=== PATIENT | male | born 2005 | race Two or more races ===

== ENCOUNTER 2023-09-01 01:49 | Emergency (ER) | payer MEDICAID, SELFPAY ==
--- NOTE | 2023-09-01 01:51 | ED.GENADULT ---
HPI - General Adult General Time Seen by Provider: 01:51 Date Seen: 09/01/23 Chief complaint: Skin/Abscess/Foreign Body Stated complaint: Allergic reaction--acid reflux, rash across body Time Seen by Provider: 09/01/23 01:53 Source: patient, RN notes reviewed and old records reviewed Mode of arrival: ambulatory Limitations: no limitations History of Present Illness HPI narrative: 18-year-old male who presents today with reflux, rash starting this evening. Patient reports he started having a rash and some heartburn symptoms yesterday, was seen in outside emergency department and was given medications, prescribed prednisone and Pepcid which he did not start taking in the rash returned tonight. He took Benadryl at home prior to coming the emergency department. He denies any breathing difficulty or cough, no tongue or lip swelling. Predominantly complains of a rash as well as nausea and some heartburn. Related Data Previous Rx's ?Medication ?Instructions ?Recorded cetirizine 10 mg capsule (Zyrtec) 10 mg PO BID 7 days #14 caps 09/01/23 Allergies Allergy/AdvReac Type Severity Reaction Status Date / Time No Known Drug Allergies Allergy Verified 09/01/23 01:59 [facility] Medical History (Updated 09/01/23 @ 03:15 by Keith Cornejo MD) No significant past medical history Surgical History (Updated 09/01/23 @ 02:29 by Emer Beltran RN) No significant past surgical history Social History Smoking Status: Never smoker Second hand tobacco smoke exposure: No How often do you have a drink containing alcohol: never AUDIT-C Alcohol total score: 0 Non-prescribed substance use: denies use Exam Narrative: Exam Narrative: General: Well-developed and well-nourished, no acute distress Head: Atraumatic and normocephalic Eyes: Pupils are equal reactive, extraocular motions intact, conjunctiva clear ENT: External nose and ears are normal, posterior pharynx without erythema or exudate Neck: No midline cervical tenderness, full spontaneous range of motion the neck, trachea midline, no adenopathy Heart: Regular rate and rhythm no murmurs or thrills Lungs: Clear to auscultation bilaterally without wheezes or crackles Abdomen: Soft, nontender, nondistended with active bowel sounds Musculoskeletal: No tenderness, deformity, or edema Neurologic: Awake, alert, and oriented x3, no gross focal neurologic deficits, cranial nerves intact as tested Psych: Mood and affect are appropriate Skin: Diffuse urticarial rash Const: Vital Signs, click to edit/add: Vital Signs - 24 hr 09/01/23 01:57 09/01/23 02:30 Temperature 97.9 F Pulse Rate [Right Pulse Oximeter] 89 Respiratory Rate 20 Blood Pressure [Ri ght Upper Arm] 133/84 Pulse Oximetry 99 99 Oxygen Delivery Me thod Room Air Course Course ED Course: Patient seen examined, prior records reviewed. Patient presents today with rash as well as nausea and heartburn. Symptoms are most consistent with allergic reaction, patient will be given epinephrine, Benadryl, Zantac IV, and prednisone in the emergency department and observed. Anticipate discharge Reevaluation(s) Time of Reevaluation #1: 03:14 Reevaluation #1: Patient recheck, he is sleeping comfortably, rash on the arms and neck is improved, still some on the low abdomen. Will continue to monitor and plan for discharge. Vital Signs Vital signs: Initial Vital Signs Temperature 97.9 F 09/01/23 01:57 Temperature Source Temporal Artery Scan 09/01/23 01:57 Pulse Rate 89 09/01/23 01:57 Respiratory Rate 20 09/01/23 01:57 Blood Pressure 133/84 09/01/23 01:57 Blood Pressure Mean 100 09/01/23 01:57 Blood Pressure Position Sitting 09/01/23 01:57 Pulse Oximetry 99 09/01/23 01:57 Oxygen Delivery Method Room Air 09/01/23 01:57 Vital Signs Temperature 97.9 F 09/01/23 01:57 Pulse Rate 89 09/01/23 01:57 Respiratory Rate 20 09/01/23 01:57 Blood Pressure 133/84 09/01/23 01:57 Pulse Oximetry 99 09/01/23 01:57 Oxygen Delivery Method Room Air 09/01/23 01:57 Temperature 97.9 F 09/01/23 01:57 Pulse Rate 89 09/01/23 01:57 Respiratory Rate 20 09/01/23 01:57 Blood Pressure 133/84 09/01/23 01:57 Pulse Oximetry 99 09/01/23 02:30 Oxygen Delivery Method Room Air 09/01/23 01:57 Medications Administered Medications: Generic Name Dose Route Start Last Admin Trade Name Freq PRN Reason Stop Dose Admin Prednisone 40 mg 09/01/23 08:00 09/01/23 02:10 Prednisone 20 Mg Tablet PO 40 mg DAILYWM ALEX Administration Discontinued Medications Generic Name Dose Route Start Last Admin Trade Name Bryn NUNEZ Reason Stop Dose Admin Diphenhydramine HCl 50 mg 09/01/23 01:59 09/01/23 02:14 Diphenhydramine 50 Mg/Ml Inj IVP 09/01/23 02:00 50 mg ONCE ONE Administration Epinephrine HCl 0.3 mg 09/01/23 01:59 09/01/23 02:10 Epinephrine 0.3 Mg Pen IM 09/01/23 02:00 0.3 mg ONCE ONE Administration Famotidine 20 mg 09/01/23 01:59 09/01/23 02:12 Famotidine 10 Mg/Ml Inj IVP 09/01/23 02:00 20 mg ONCE ONE Administration Ondansetron HCl 4 mg 09/01/23 01:59 09/01/23 02:10 Ondansetron 2 Mg/Ml Inj IVP 09/01/23 02:00 4 mg ONCE ONE Administration Discharge Plan Discharge Clinical Impression: Allergic reaction Patient Disposition: Home, Self-Care Condition: Stable Instructions: General Allergic Reaction (ED) Additional Instructions: Start prednisone and Pepcid as prescribed at your visit yesterday Take Benadryl 50 mg every 6 hours scheduled for 24 hours, then every 6 hours as needed Start Zyrtec twice a day for 1 week and then as needed Activity Level: No Restrictions Discharge Diet: Regular Prescriptions: New Zyrtec 10 mg capsule 10 mg PO BID 7 Days Qty: 14 0RF Follow Up/Referrals: Nick Crouch, CHRIS, ATC, CSCS [Clinical Science Consultant Certified] - Stand Alone Forms: [employer] Info Instructions
[2023-09-01 01:57] VITALS: BP 133/84; PULSE 89; RESP 20; TEMP 36.6; O2SAT 99; BMI 46.8
[2023-09-01] MEDS: ONDANSETRON 2 MG/ML inj 4 MG IVP (02:10)
[2023-09-01] MEDS: predniSONE 20 MG TABLET 40 MG PO (02:10)
[2023-09-01] MEDS: EPINEPHrine 0.3 MG PEN IM (02:10)
[2023-09-01] MEDS: FAMOTIDINE 10 MG/ML inj 20 MG IVP (02:12)
[2023-09-01] MEDS: diphenhydrAMINE 50 MG/ML inj IVP (02:14)
[2023-09-01 02:30] VITALS: O2SAT 99
[2023-09-01 03:56] VITALS: BP 137/74; PULSE 79; RESP 20; TEMP 36.6; O2SAT 99
[2023-09-01 03:57] VITALS: BP 137/74; PULSE 79; RESP 20; TEMP 36.6
== END 2023-09-01 03:57 | disposition home or self-care (01) ==
PROVIDERS: Emergency Provider Family Medicine
DX: R21 Rash and other nonspecific skin eruption (principal); T78.40XA Allergy, unspecified, initial encounter
CPT/HCPCS: 94761; 96372; 96374; 96375; 99283; J0171; J1200; J2405; J7512; S0028

== ENCOUNTER 2024-03-18 18:22 | Emergency (ER) | payer MEDICAID, SELFPAY ==
--- OUTSIDE RECORDS SUMMARY | 2024-03-18 18:25 | XMS_ITS | Clinical Summary ---
Author Organization [employer] [facility] s [facility] Address [place], [place] [address] Care Team Providers Care Sales Representative Education Courses Name Role Phone Lina Aguilera RD Unavailable [phone] Julia Pham DPT Unavailable [phone] Unavailable Hugo Emery MD Primary Care Provider [phone] Corinne Romero Unavailable [phone] Allergies No known active allergies Medications polyethylene glycol (MIRALAX; GLYCOLAX) 17 g powder for solutionIndicati ons:Childhood obesity, unspecified BMI, unspecified obesity type, unspecified whether serious comorbidity present Mix 17 g in liquid then take by mouth once daily. 0 11/12/19 21 Active aspirin (ECOTRIN) 81 mg enteric coated tabletIndication s:Frostbite, initial encounter Take 1 Tablet (81 mg) by mouth once daily with a meal. 14 Tablet 04/18/19 23 Active cholecalciferol (VITAMIN D3) 2,000 unit capsuleIndicatio ns:Abnormal craving,Obesity with body mass index (BMI) greater than 99th percentile for age in pediatric patient, unspecified obesity type, unspecified whether serious comorbidity present TAKE ONE CAPSULE BY MOUTH EVERY DAY 90 Capsule 3 10/08/19 23 Active topiramate (TOPAMAX) 25 mg tabletIndication s:Abnormal craving Take 2 Tablets (50 mg) by mouth once daily. 60 Tablet 2 12/01/19 23 Active phentermine (IONAMIN) 15 mg capsuleIndicatio ns:Abnormal craving Take 1 Capsule (15 mg) by mouth once daily before a meal. 30 Capsule 2 12/01/19 23 Active hydrOXYzine HCL (ATARAX) 25 mg tabletIndication s:Allergic urticaria Take 1-2 Tablets (25-50 mg) by mouth every 6 hours if needed for Itching. 30 Tablet 09/03/19 24 Active EPINEPHrine (EPIPEN) 0.3 mg/0.3 mL auto-injectorInd ications:Allergi c urticaria Inject 0.3 mg (1 Pen) intramuscular each time if needed for Allergic Reaction. 2 Each 3 09/03/19 24 Active sennosides-docus ate (SENOKOT S) (8.6-50 mg) tabletIndication s:Chronic constipation Take 1 Tablet by mouth once daily if needed for Constipation. 30 Tablet 5 09/03/19 24 Active Active Problems Patient Care Coordination No te Formatting of this note migh t be different from the original. Nutrition Order 03/21/2021 Problem Noted Date Diagnosed Date Controlled substance agreement signed 11/30/2022 Overview (11/30/2022): For phentermine. 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 Encounters Date Type Department Care Team Description 03/17/2024 7:09 PM SLOT OPERATIONS DIRECTOR - 03/17/2024 7:13 PM SLOT OPERATIONS DIRECTOR Emergency [facility] [address] [place] [address] Discharge Disposition: Against Medical Advice or Discontinued Care 03/17/2024 Travel from Last 3 Months Immunizations Name Administration Dates Next Due DTaP 11/03/2004 [id number] (Pediarix) 01/07/2004,2003,0 2003 DTaP-IPV (Kinrix) 11/23/2008 HIB PRP-OMP (PedvaxHIB) 11/03/2004,2003, HPV 9 (Gardasil 9) 05/02/2019,11/12/2015 Hepatitis A (Peds) 11/22/2008,07/04/2007 Hepatitis B (Peds) 2003 Influenza, IIV3 (Age >=3 years) 01/06/2008 Influenza, IIV4 03/22/2020, 0,11/12/2015,04/10 MENINGOCOCCAL VACCINE 2 VIAL 2MO-55YO (MENVEO) 11/13/2019,11/12/2015 MMR 07/04/2007,07/10/2004 Pneumococcal conj 7-Valent (Prevnar 7) 5,2003,2003 Tdap 04/18/2022,11/12/2015 Varicella Vaccine 07/04/2007,07/10/2004 Family History Medical History Relation Name Comments Hyperlipidemia Maternal Grandmother Hypertension Maternal Grandmother Obesity Mother Relation Name Status Comments Brother Alive x1 Father Alive Maternal Grandfather Alive Maternal Grandmother Alive Mother Alive Paternal Grandfather Alive Paternal Grandmother Alive Social History Tobacco Use Types Packs/Day Years Used Date Smoking Tobacco: Never Smokeless Tobacco: Never Tobacco Cessation:Counseling Given: No Alcohol Use Standard Drinks/Week Comments No 0 (1 standard drink = 0.6 oz pur e alcohol) [facility] Utilities Answer Date Recorded Do you have trouble paying f or utilities (for example, heat, electricity, water, phone)? Yes 09/03/2023 PHQ-2 Answer Date Recorded PHQ-2 TOTAL SCORE 2 11/11/2020 Social Connections Answer Date Recorded Do you often feel lonely or isolated from those around you? 0 09/03/2023 Financial Resource Strain Answer Date R ecorded Difficulty of Paying Living Expenses 3 09/03/2023 Difficulty of Paying Living Expenses Not on file 09/03/2023 Food Insecurity Answer Date Recorded Do you worry your food will run out before you are able to buy more? 1 09/03/2023 Transportation Needs Answer Date Record ed Does lack of transportation keep you from medica l appointments? 1 09/03/2023 Does lack of transportation keep you from work, meetings or getting things that you need? 1 09/03/2023 Housing Stability Answer Date Recorded What is your housing situation today? 1 09/03/2023 Interpersonal Safety Answer Date Record ed Are you being hit, kicked, p ushed or yelled at (see row info)? 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 Not on file Not on file Not on fi le Obstetrics History Last Filed Vital Signs Vital Sign Reading Time Taken Comments Blood Pressure 122/72 09/03/2023 4:00 PM CDT Pulse 80 09/03/2023 4:00 PM CDT Temperature 36.6 C (97.9 F) 09/03/2023 5:31 AM CDT Respiratory Rate 17 09/03/2023 4:00 PM CDT Oxygen Saturation 98% 09/03/2023 7:00 AM CDT Inhaled Oxygen Concentration - - Weight 178.3 kg (393 lb) 09/03/2023 4:00 PM CDT Height 172.7 cm (5' 8) 09/03/2023 4:00 PM CDT Body Mass Index 59.76 09/03/2023 4:00 PM CDT Plan of Treatment Health Maintenance Due Date Last Done Comments HIV for age 15-65 06/24/2018 Well Child Check for age 3-20 05/02/2020 05/02/2019, 11/12/2015, 11/22/2008, Additional history exists Hepatitis C screening for age 18-79 06/24/2021 Depression screening for age 12+ 11/14/2021 11/14/2020, 11/14/2020, 11/13/2020, Additional history exists COVID-19 vaccine series (2023- season) 2023 Influenza for age 9-49 11/14/2023 , 05/02/2019, 11/12/2015, Additional history exists BMI (ht and wt on same day) for age 18+ 09/02/2024 09/03/2023, 11/30/2022, 10/05/2022, Additional history exists Tetanus booster 04/18/2032 04/18/2022, 11/12/2015 Pneumococcal series for age 6-49 Aged Out 11/03/2004, 2003, 2003 No longer eligible based on patient's age to complete this topic HPV series for age 9-26 Completed 05/02/2019, 11/11 Meningococcal series for age 11-21 Completed 11/13/2019, 11/12/2015 Tdap Completed 04/18/2022, 11/12/2015 Additional Health Concerns Infection Onset Date Last Indicated MRSA Comment:Leg wound 07/20/2013 07/20/2013 Insurance [facility] [place] [address] [facility] [phone] [place] [id number] Care Teams Sales Representative Education Courses Relationship Specialty Start Date End Date Hugo Emery MD [address] [place] [address] [place] [address] PCP - General Family Practice 09/03/[address] [address] Solar Sales 04/24/22 Julia Pham DPT [address] [address] Physical Therapist Physical Therapist 04/24/[address] [address] Solar Sales 03/31/23 Corinne Romero PA [address] [place] [address] Physician Endoscopy Tech 12/08/23
[2024-03-18 18:29] VITALS: BP 144/85; PULSE 95; RESP 20; TEMP 36.4; O2SAT 98; BMI 57.0
--- NOTE | 2024-03-18 18:53 | ED_ITS ---
HPI - General Adult General Chief complaint: Chest Pain Stated complaint: increasing chest pains over 3 weeks Time Seen by Provider: 03/18/24 18:33 History of Present Illness HPI narrative: This 18-year-old male comes in reporting chest discomfort that he thinks may be related to reflux symptoms. He states that it began 3 weeks ago when he had several vomiting episodes. The pain began immediately at that time and has dissipated a bit but has been persistent nevertheless through these past 3 weeks and seems to be worsening recently. He states that the pain seems worse when laying down. He does not report any nausea, vomiting recently, lightheadedness, shortness of breath, diaphoresis, or exercise intolerance. He is taking Wegovi for weight loss but started this a few months ago. He states that he did discontinue this medicine for for 1 week and his symptoms did not change when doing so. Related Data Home Medications ?Medication ?Instructions ?Recorded ?Confirmed semaglutide (weight loss) 0.5 0.5 mg subcut 03/18/24 mg/0.5 mL subcutaneous pen injector (Wegovy) Previous Rx's ?Medication ?Instructions ?Recorded pantoprazole 20 mg tablet,delayed 20 mg PO DAILY #30 tabs 03/18/24 release (Protonix) Allergies Allergy/AdvReac Type Severity Reaction Status Date / Time No Known Drug Allergies Allergy Verified 09/01/23 01:59 Review of Systems Status of ROS: Reports: 10 or more systems reviewed and unremarkable except as noted in History and below Narrative: Constitutional: No fevers, no weight gain or loss. Eyes: No discharge. No vision changes. HENT: No congestion, no sore throat, no ear pain. Cardiovascular: No palpitations. Respiratory: No shortness of breath, no wheezes, no cough. Gastrointestinal: No abdominal pain, no vomiting, no diarrhea. Genitourinary: No dysuria, no hematuria. Musculoskeletal: Normal range of motion. Skin: No rashes, no pruritis. Neurological: No dizziness, weakness, sensory change, speech change. Endo/Heme/Allergies: No bruising or bleeding. No polydipsia. Pysch: no suicidality, no anxiety, no insomnia. All other systems reviewed and are negative. [facility] Medical History (Updated 03/18/24 @ 18:58 by Arnold Calderon MD) No significant past medical history Surgical History (Updated 09/01/23 @ 02:29 by Emre Beltran RN) No significant past surgical history Social History Smoking Status: Never smoker Second hand tobacco smoke exposure: No How often do you have a drink containing alcohol: never AUDIT-C Alcohol total score: 0 Non-prescribed substance use: denies use Exam Narrative: Exam Narrative: Constitutional: Well-developed, well-nourished, no acute distress. HEENT: Normocephalic, atraumatic. Neck: Normal range of motion. Nontender. Supple. Heart: Regular. No murmurs. Normal rate. Intact distal pulses. Lungs: Clear to auscultation. No wheezes, rhonchi, or rales. Abdomen: Normal bowel sounds. Nontender. No rebound tenderness. Genitalia: Deferred. Back: No midline tenderness. Normal range of motion. Extremities: Normal range of motion. No injury. Skin: Intact. No rash. Warm. No erythema or pallor. Neurologic: No altered sensation. No weakness. Alert and oriented. Psychiatric: No suicidality. No anxiety or depression. No insomnia. Nursing notes and vitals signs are reviewed. Const: Vital Signs, click to edit/add: Vital Signs - 24 hr 03/18/24 18:29 Temperature 97.5 F L Pulse Rate [Pulse Oximeter] 95 Respiratory Rate 20 Blood Pressure [Ri ght Upper Arm] 144/85 H Pulse Oximetry 98 Oxygen Delivery Me thod Room Air Course Vital Signs Vital signs: Initial Vital Signs Temperature 97.5 F L 03/18/24 18:29 Temperature Source Temporal Artery Scan 03/18/24 18:29 Pulse Rate 95 03/18/24 18:29 Respiratory Rate 20 03/18/24 18:29 Blood Pressure 144/85 H 03/18/24 18:29 Blood Pressure Mean 104 03/18/24 18:29 Blood Pressure Position Sitting 03/18/24 18:29 Pulse Oximetry 98 03/18/24 18:29 Oxygen Delivery Method Room Air 03/18/24 18:29 Vital Signs Temperature 97.5 F L 03/18/24 18:29 Pulse Rate 95 03/18/24 18:29 Respiratory Rate 20 03/18/24 18:29 Blood Pressure 144/85 H 03/18/24 18:29 Pulse Oximetry 98 03/18/24 18:29 Oxygen Delivery Method Room Air 03/18/24 18:29 Temperature 97.5 F L 03/18/24 18:29 Pulse Rate 95 03/18/24 18:29 Respiratory Rate 20 03/18/24 18:29 Blood Pressure 144/85 H 03/18/24 18:29 Pulse Oximetry 98 03/18/24 18:29 Oxygen Delivery Method Room Air 03/18/24 18:29 Medical Decision Making MDM Narrative Medical decision making narrative: This patient has chest discomfort likely related to reflux symptoms. He states that he feels a bad taste in his mouth frequently even after brushing his teeth. An EKG is obtained here and appears normal without any ST or T-wave abnormalit ies. The patient is not showing any signs or symptoms of heart or lung or great vessel disease. I recommended using a proton pump inhibitor and did provide a prescription for Protonix. He may use snog-tyu-lzoomsy medicines that are similar instead if desired. ECG Data Attestation: I personally reviewed and interpreted this ECG as follows: Interpretation: Normal sinus rhythm. Rate is 96 beats per minute. There are no ST or T-wave abnormalities. Discharge Plan Discharge Clinical Impression: Chest pain due to GERD Patient Disposition: Home, Self-Care Condition: Unchanged Additional Instructions: Take Protonix as prescribed. You may substitute Prilosec (omeprazole), Prevacid, or Nexium for the same results. Follow up with MD return if worsening. Prescriptions: New pantoprazole [Protonix] 20 mg tablet,delayed release (DR/EC) 20 mg PO DAILY Qty: 30 2RF No Action Wegovy 0.5 mg/0.5 mL pen injector 0.5 mg subcut Follow Up/Referrals: Provider,Not a Local [Primary Care Provider] - Stand Alone Forms: [employer] Info Instructions
--- OUTSIDE RECORDS SUMMARY | 2024-03-18 19:01 | XMS_ITS | Clinical Summary ---
Author Organization [employer] [facility] s & [facility] Affiliates Address [place], [place] [address] Care Team Providers Care Talent Acquisition Program Manager Name Role Phone Lina Aguilera RD Unavailable [phone] Julia Pham DPT Unavailable [phone] Unavailable Hugo Emery MD Primary Care Provider [phone] Corinne Romero Unavailable [phone] Allergies No known active allergies Medications polyethylene [...] Department Care Team Description 03/17/2024 7:09 PM [facility]ER [facility] - 03/17/2024 7:13 PM [facility] Emergency [facility] [address] [place] [address] Discharge Disposition: Against Medical Advice or Discontinued Care 03/17/2024 Travel from Last 3 Months Immunizations Name Administration Dates Next Due DTaP 11/03/2004 [id number] (Pediarix) 01/07/2004,2003,0 2003 DTaP-IPV (Kinrix) 11/23/2008 HIB [...] drink = 0.6 oz pur e alcohol) [facility] Utilities Answer Date Recorded Do you have [...] on file Legal Sex Male 7:03 AM EASTER BUNNY Gender Identity Not on file Sexual Orientation [...] Indicated MRSA Comment:Leg wound 07/20/2013 07/20/2013 Insurance [facility] MEDICA[facility] [place] [address] [facility] [address] [place] [address] Care Teams Talent Acquisition Program Manager Relationship Specialty Start Date End Date Hugo Emery MD [address] [place] [address] [place] [address] PCP - General Family Practice 09/03/[address] [address] Travel Money Advisor 04/24/22 Julia Pham DPT [address] [address] Physical Therapist Physical Therapist 04/24/[address] [address] Travel Money Advisor 03/31/23 Corinne Romero PA [address] [place] [address] Physician Fireworks Assembly Supervisor 12/08/23
== END 2024-03-18 19:15 | disposition home or self-care (01) ==
LOC: ED 19:00
PROVIDERS: Emergency Provider Emergency Medicine Emergency Medical Services
DX: R07.9 Chest pain, unspecified (principal); K21.9 Gastro-esophageal reflux disease without esophagitis
CPT/HCPCS: 99284

== ENCOUNTER 2024-07-25 20:18 | Emergency (ER) | payer MEDICAID, SELFPAY ==
--- OUTSIDE RECORDS SUMMARY | 2024-07-25 20:19 | XMS_ITS | Clinical Summary ---
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 Gender Identity Not on file Sexual Orientation [...] Done Comments HIV for age 15-65 06/24/2018 Hepatitis C screening for age 18-79 06/24/2021 Depression screening for age 12+ 11/14/2021 11/14/2020, 11/14/2020, 11/13/2020, Additional history exists COVID-19 vaccine series (2023- season) 2023 BMI (ht and wt on same day) for age 18+ 09/02/2024 09/03/2023, 11/30/2022, 10/05/2022, Additional history exists Influenza Vaccine (Season Ended) 2024 03/22/2020, 05/02/2019, 11/12/2015, Additional history exists Tetanus booster 04/18/2032 04/18/2022, 11/12/2015 Pneumococcal series for age 6-49 Aged Out 11/03/2004, 2003, 2003 No longer eligible based on patient's age to complete this topic HPV series for age 9-26 Completed 05/02/2019, 11/11 Meningococcal series for age 11-21 Completed 11/13/2019, 11/12/2015 Tdap Completed 04/18/2022, 11/12/2015 Additional Health Concerns Infection Onset Date Last Indicated MRSA Comment:Leg wound 07/20/2013 07/20/2013 Insurance [facility] MEDICAID [facility] Care Teams Benchroom Shop Optician Relationship Specialty Start Date End Date Hugo Emery MD [address] [facility] [place] [address] PCP - General Family Practice 09/03/[address] [address] Gift Consultant 04/24/22 Julia Mark DPT [address] [address] Physical Therapist Physical Therapist 04/24/[address] [address] Gift Consultant 03/31/23 Corinne Romero PA [address] [facility] [place] [address] Physician Service Assistant 12/08/23
[2024-07-25 20:53] VITALS: BP 141/93; PULSE 93; RESP 20; TEMP 35.6; O2SAT 99; BMI 55.0
[2024-07-25] MEDS: ONDANSETRON 2 MG/ML inj 4 MG IVP (21:45)
--- OUTSIDE RECORDS SUMMARY | 2024-07-25 22:03 | XMS_ITS | Clinical Summary ---
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 Gender Identity Not on file Sexual Orientation [...] Indicated MRSA Comment:Leg wound 07/20/2013 07/20/2013 Insurance [facility] MEDICAID [facility] Care Teams Cashier Associate Relationship Specialty Start Date End Date Hugo Emery MD [address] [facility] [place] [address] PCP - General Family Practice 09/03/[address] [address] Hot Knife Foxing Cutter 04/24/22 Julia Mark DPT [address] [address] Physical Therapist Physical Therapist 04/24/[address] [address] Hot Knife Foxing Cutter 03/31/23 Corinne Romero PA [address] [place] [address] Physician Woods Laborer 12/08/23
[2024-07-25 22:08] LABS: Basophils Percent Auto 0.2 % (0.0-3.0); Eosinophils Percent Auto 0.2 % (0.0-7.0); Hemoglobin* 14.3 gm/dL (13.5-17.5); Immature Granulocytes Pct Auto 0.9 %; Lymphocytes Percent Auto 10.4 % (20-44); Mean Corpuscular HGB Conc 33 gm/dL (32-36); Mean Corpuscular Hemoglobin 27 pg (26-34); Mean Corpuscular Volume 82 fL (80-100); Monocytes Percent Auto 5.7 % (0.0-11.0); Neutrophils Percent Auto 82.6 % (42.0-72.0); Platelet Count* 378 K/uL (140-440); RDW Coefficient of Variation % 13.8 % (11.5-15.5); Red Blood Count 5.37 m/uL (4.30-5.90); White Blood Count* 17.16 K/uL (4.50-11.00)
[2024-07-25 22:19] LABS: Albumin* 4.8 g/dL (3.3-5.0); Chloride* 101 mmol/L (96-114); Potassium* 3.5 mmol/L (3.6-5.1); Sodium* 139 mmol/L (135-149)
[2024-07-25 22:22] LABS: Alanine Aminotransferase* 45 U/L (4-50); Alkaline Phosphatase* 67 U/L (40-150); Anion Gap 11 mEq/L (7-15); Aspartate Amino Transferase* 34 U/L (12-35); Bilirubin Total* 0.6 mg/dL (0.1-1.5); Blood Urea Nitrogen* 12 mg/dL (5-24); Calcium* 9.3 mg/dL (8.4-10.6); Carbon Dioxide* 27 mmol/L (20-32); Creatinine* 0.7 mg/dL (0.5-1.5); Estimated Glomerular Filt Rate 134 ml/min; Glucose* 96 mg/dL (60-115); Total Protein* 8.4 g/dL (6.0-8.3)
[2024-07-25 22:29] LABS: Slide Review Reflex No
[2024-07-25 22:31] VITALS: BP 131/59; PULSE 83; RESP 16; O2SAT 97
[2024-07-25] MEDS: 0.9 % SODIUM CHLORIDE 1000 ml 1,000 ML IV (23:09)
[2024-07-25] MEDS: ACETAMINOPHEN 500 MG TABLET 1000 MG PO (23:11)
[2024-07-25] MEDS: METOCLOPRAMIDE HCL 10 MG in 0.9 % SODIUM CHLORIDE 100 ml 100 ML 306 MG IVPB (23:30)
--- NOTE | 2024-07-26 01:14 | ED_ITS ---
HPI - General Adult General Date Seen: 07/26/24 Chief complaint: Nausea/Vomiting Stated complaint: vomiting Time Seen by Provider: 07/25/24 21:31 History of Present Illness HPI narrative: Patient is a 19-year-old here with significant other due to vomiting. He notes that he is on Wegovy, which he says he generally tolerates well, but his dose was increased yesterday. He took the new higher dose at noon and says it kicked in at midnight which is when he started vomiting. Since then he says he has not been able to keep anything down. He denies any abdominal pain, has not had diarrhea. Denies fevers. He does not smoke or drink, denies any other substanc es. No prior abdominal surgeries, denies other medical history. Related Data Home Medications ?Medication ?Instructions ?Recorded ?Confirmed semaglutide (weight loss) 0.5 0.5 mg subcut 03/18/24 mg/0.5 mL subcutaneous pen injector (Wegovy) Previous Rx's ?Medication ?Instructions ?Recorded pantoprazole 20 mg tablet,delayed 20 mg PO DAILY #30 tabs 03/18/24 release (Protonix) Allergies Allergy/AdvReac Type Severity Reaction Status Date / Time No Known Drug Allergies Allergy Verified 07/25/24 20:58 Review of Systems Status of ROS: Reports: 10 or more systems reviewed and unremarkable except as noted in History and below [facility] Medical History No significant past medical history Surgical History No significant past surgical history Social History Smoking Status: Never smoker Second hand tobacco smoke exposure: No How often do you have a drink containing alcohol: never AUDIT-C Alcohol total score: 0 Non-prescribed substance use: denies use service: No Exam Narrative: Exam Narrative: Vital signs reviewed In general, alert, nontoxic Head: Normocephalic, atraumatic. Eyes: Sclera clear. Pupils equal and reactive. ENT: Mucous membranes moist. Neck: Supple without adenopathy. Heart: Regular rate and rhythm without murmur. Lungs: Clear. No increased work of breathing, crackles or wheezes. Abdomen: Soft, nontender to palpation. Extremities: Well perfused, pulses intact. No significant edema. Neurologic: Alert, conversant. Speech fluent, face symmetric. Moves all extremities equally. Skin: Warm, dry well perfused. Affect: Normal. Const: Vital Signs, click to edit/add: Vital Signs - 24 hr 07/25/24 20:53 07/25/24 22:31 Temperature 96.0 F L Pulse Rate [Pulse Oximeter] 93 83 Respiratory Rate 20 16 Blood Pressure [Le ft Upper Arm] 141/93 H 131/59 L Pulse Oximetry 99 97 Oxygen Delivery Me thod Room Air Room Air Course Course ED Course: With placed an IV here, give a L of normal saline and initially Zofran with improvement in vomiting although still complained nausea. Was able to keep some clear liquids down at that point. I did give him additional Reglan and nausea is improved. I checked some basic labs, he does have an elevated white blood cell count of 17 which I think is most likely demargination under these circumstances, continues to deny abdominal pain and has no abdominal tenderness. He is afebrile. His electrolytes are largely normal, potassium is 3.5 otherwise these are normal. LFTs are normal. He is feeling improved at this time and would like to go home. Will discharge with some Zofran, reviewed with him that if he is feeling worse, develops abdominal pain, persistent vomiting despite treatment, or other new or worsening symptoms he should return to the emergency department. Otherwise, discuss medication dosing with primary care a nd adjust accordingly. Vital Signs Vital signs: Initial Vital Signs Temperature 96.0 F L 07/25/24 20:53 Temperature Source Temporal Artery Scan 07/25/24 20:53 Pulse Rate 93 07/25/24 20:53 Respiratory Rate 07/25/24 20:53 Blood Pressure 141/93 H 07/25/24 20:53 Blood Pressure Mean 109 H 07/25/24 20:53 Blood Pressure Position Sitting 07/25/24 20:53 Pulse Oximetry 99 07/25/24 20:53 Oxygen Delivery Method Room Air 07/25/24 20:53 Vital Signs Temperature 96.0 F L 07/25/24 20:53 Pulse Rate 93 07/25/24 20:53 Respiratory Rate 07/25/24 20:53 Blood Pressure 141/93 H 07/25/24 20:53 Pulse Oximetry 99 07/25/24 20:53 Oxygen Delivery Method Room Air 07/25/24 20:53 Temperature 96.0 F L 07/25/24 20:53 Pulse Rate 83 07/25/24 22:31 Respiratory Rate 16 07/25/24 22:31 Blood Pressure 131/59 L 07/25/24 22:31 Pulse Oximetry 97 07/25/24 22:31 Oxygen Delivery Method Room Air 07/25/24 22:31 Medications Administered Medications: Discontinued Medications Generic Name Dose Route Start Last Admin Trade Name Bruceq PRN Reason Stop Dose Admin Acetaminophen 1,000 mg 07/25/24 22:43 07/25/24 23:11 Acetaminophen 500 Mg Tablet PO 07/25/24 22:44 1,000 mg ONCE ONE Administration Sodium Chloride 1,000 mls @ 1,000 mls/hr 07/25/24 21:45 07/25/24 23:28 0.9 % Sodium Chloride 1000 Ml IV 07/25/24 22:44 Infused .Q1H ALEX Infusion Metoclopramide HCl 10 mg/ 102 mls @ 306 mls/hr 07/25/24 23:27 07/25/24 23:58 Sodium Chloride IVPB 07/25/24 23:28 Infused ONCE ONE Infusion Ondansetron HCl 4 mg 07/25/24 21:39 07/25/24 21:45 Ondansetron 2 Mg/Ml Inj IVP 07/25/24 21:40 4 mg ONCE ONE Administration Medical Decision Making Lab Data Labs: Lab Results 07/25/24 Range/Units 20:58 WBC 17.16 H (4.50-11.00) K/uL RBC 5.37 (4.30-5.90) m/uL Hgb 14.3 (13.5-17.5) gm/dL Hct 44.0 (37.0-53.0) % MCV 82 (80-100) fL MCH 27 (26-34) pg MCHC 33 (32-36) gm/dL RDW Coeff of Juan 13.8 (11.5-15.5) % Plt Count 378 (140-440) K/uL Neut % (Auto) 82.6 H (42.0-72.0) % Lymph % (Auto) 10.4 L (20-44) % [place] % (Auto) 5.7 (0.0-11.0) % Eos % (Auto) 0.2 (0.0-7.0) % Baso % (Auto) 0.2 (0.0-3.0) % Neut # (Auto) 14.20 H (1.7-7.0) K/uL Lymph # (Auto) 1.80 (0.90-2.90) K/uL [place] # (Auto) 1.00 H (0.00-0.90) K/UL Eos # (Auto) 0.00 (0.00-0.50) K/uL Baso # (Auto) 0.00 (0.00-0.30) K/uL Abs Immat Gran (auto) 0.20 (0.00-0.30) K/uL Imm/Tot Granulo (auto) 0.9 % Sodium 139 (135-149) mmol/L Potassium 3.5 L (3.6-5.1) mmol/L Chloride 101 (96-114) mmol/L Carbon Dioxide 27 (20-32) mmol/L Anion Gap 11 (7-15) mEq/L BUN 12 (5-24) mg/dL Creatinine 0.7 (0.5-1.5) mg/dL Estimated Creat Clear 161.50 Estimated GFR 134 ml/min Glucose 96 (60-115) mg/dL Calcium 9.3 (8.4-10.6) mg/dL Total Bilirubin 0.6 (0.1-1.5) mg/dL AST 34 (12-35) U/L ALT 45 (4-50) U/L Alkaline Phosphatase 67 (40-150) U/L Total Protein 8.4 H (6.0-8.3) g/dL Albumin 4.8 (3.3-5.0) g/dL Discharge Plan Discharge Clinical Impression: Drug-induced nausea and vomiting Patient Disposition: Home, Self-Care Condition: Improved Instructions: Acute Nausea and Vomiting (DC) Additional Instructions: Clear liquids, advance as able. Zofran if needed. If you have new or worsening symptoms such as significant abdominal pain, fevers, bloody stools or other changes, return to the ER at any time. Otherwise, discuss medication dosage with your prescribing doctor and adjust as recommended. Prescriptions: No Action Wegovy 0.5 mg/0.5 mL pen injector 0.5 mg subcut pantoprazole [Protonix] 20 mg tablet,delayed release (DR/EC) 20 mg PO DAILY Qty: 30 2RF Follow Up/Referrals: Provider,Not a Local [Primary Care Provider] - Stand Alone Forms: [facility] Info Instructions
== END 2024-07-26 00:32 | disposition home or self-care (01) ==
PROVIDERS: Emergency Provider Emergency Medicine
DX: R11.2 Nausea with vomiting, unspecified (principal); T50.995A Adverse effect of other drugs, medicaments and biological substances, initial encounter
CPT/HCPCS: 36415; 80053; 85025; 96374; 96375; 99284; A9270; J2405; J2765; J7030